=== PATIENT | male | born 1965 | race Caucasian/White ===

== ENCOUNTER 2023-09-07 09:20 | Emergency (ER) | payer BC ==
[2023-09-07] MEDS ORDERED: Sodium Chloride 0.9% 10 ML Syringe FLUSH PRN (09:25)
[2023-09-07 09:54] LABS: BASOPHILS ABSOLUTE AUTO 0.04 K/uL (0.00-0.20); BASOPHILS PERCENT AUTO 0.5 % (0.0-2.0); EOSINOPHILS ABSOLUTE AUTO 0.08 K/uL (0.00-0.50); EOSINOPHILS PERCENT AUTO 1.1 % (0.0-5.0); HEMATOCRIT 30.6 % (39.0-49.0); HEMOGLOBIN 10.2 g/dL (13.1-16.8); LYMPHOCYTES ABSOLUTE AUTO 1.51 K/uL (0.50-3.50); LYMPHOCYTES PERCENT AUTO 20.6 % (10.0-50.0); MEAN CORPUSCULAR HEMOGLOBIN 30.4 pg (28.2-33.3); MEAN CORPUSCULAR HGB CONC 33.3 g/dL (31.7-36.0); MEAN CORPUSCULAR VOLUME 91.1 fL (84.0-98.0); MONOCYTES ABSOLUTE AUTO 0.55 K/uL (0.00-1.00); MONOCYTES PERCENT AUTO 7.5 % (2.0-14.0); NEUTROPHILS ABSOLUTE AUTO 5.16 K/uL (1.40-7.00); NEUTROPHILS PERCENT AUTO 70.3 % (45.0-80.0); PLATELET COUNT,PLT 212 K/uL (150-350); RED BLOOD CELL COUNT 3.36 M/uL (4.33-5.41); RED CELL DISTRIBUTION WIDTH 12.9 % (11.2-14.1); WHITE BLOOD CELL COUNT,WBC 7.3 K/uL (4.0-10.2)
[2023-09-07] MEDS: Sodium Chloride 0.9% 1,000 ML IV ONE (09:56)
[2023-09-07] MEDS: Diltiazem 25 MG/5 ML SDV IVPUSH ONE (09:58)
[2023-09-07 10:21] LABS: ALBUMIN 3.3 g/dL (3.4-5.0); ANION GAP 11.3 meq/L (7-15); BILIRUBIN TOTAL 1.3 mg/dL (0.2-1.0); CARBON DIOXIDE,CO2 26.7 mmol/L (21.0-32.0); CREATININE 1.21 mg/dL (0.51-1.17); EST CRCL DRUG DOSING (CG) 71.26 mL/min; POTASSIUM,K 3.8 mmol/L (3.5-5.1); PROTEIN TOTAL,TP 6.6 g/dL (6.4-8.2)
[2023-09-07 10:27] LABS: CALCIUM 8.2 mg/dL (8.5-10.1)
[2023-09-07] MEDS ORDERED: Amiodarone 150 MG/3 ML SDV IVPUSH ONE (10:44)
[2023-09-07] MEDS: Sodium Chloride 0.9% 1,000 ML IV SCH (11:27)
[2023-09-07] MEDS: Amiodarone 200 MG Tab PO ONE (12:02)
[2023-09-07 16:12] VITALS: BP 108/71; PULSE 74
== END 2023-09-07 15:55 | disposition home or self-care (01) ==
LOC: LL.ED 09:20
DX: I48.91 Unspecified atrial fibrillation (principal); Z79.82 Long term (current) use of aspirin; Z79.899 Other long term (current) drug therapy
CPT/HCPCS: 36415; 80053; 83880; 84484; 85025; 93005; 93010; 96361; 96365; 96366; 99284; 99285-25; A9270-GY; J0282; J3490; J7030